=== PATIENT | male | born 1975 | race Asian ===

== ENCOUNTER 2023-07-09 06:40 | Emergency (ER) | payer MEDICAID ==
[~2023-07-09] VITALS: Ht 182.9 cm; Wt 93.0 kg
[2023-07-09 06:58] VITALS: BP_SYST 165; PULSE 90; RESP 19; TEMP 97.2; O2SAT 94
[2023-07-09] MEDS ORDERED: LIDOCAINE 1% 10 MG/ML, 20 ML MDV INJ ONE (07:00)
[2023-07-09] MEDS ORDERED: DIPHTH,PERTUSS(ACELL),TET VAC 0.5 ML VIAL (Tdap) I.M. ONE (07:00)
[2023-07-09] MEDS ORDERED: BACITRACIN 1 GM OINT TP ONE (07:00)
[2023-07-09 07:50] VITALS: BP_SYST 130; PULSE 78; RESP 16; TEMP 98.6; O2SAT 98
== END 2023-07-09 07:48 | disposition home or self-care (01) ==
LOC: SED 06:40
DX: S01.81XA Laceration without foreign body of other part of head, initial encounter (principal); Z79.899 Other long term (current) drug therapy; W22.8XXA Striking against or struck by other objects, initial encounter; Y93.89 Activity, other specified; Y92.89 Other specified places as the place of occurrence of the external cause; Y99.8 Other external cause status
CPT/HCPCS: 99283; 90715; 90471; 12013; J2001